=== PATIENT | male | born 1975 | race Caucasian/White ===

== ENCOUNTER 2018-01-07 09:49 | Emergency (ER) | payer OTHER ==
[~2018-01-07] VITALS: Ht 188 cm; Wt 127.0 kg
[~2018-01-07 09:49] MED LIST: APAP500 PO; BACTRIM DS TAB1 EACH PO; HYDROCODONE-AP1 EAC6 PO; IBUPROFEN 800800 M1 PO
[2018-01-07] MEDS ORDERED: ACCUNEB SO1.25 MG/1 INH (09:59)
[2018-01-07 10:37] LABS: ABSOLUTE BASOPHILS 0.1 thou/uL (0.0-0.2); ABSOLUTE EOSINOPHILS 0.2 thou/uL (0.0-0.7); ABSOLUTE MONOCYTES 0.5 thou/uL (0.0-1.2); ABSOLUTE NEUTROPHILS 3.7 thou/uL (1.6-8.1); BASOPHILS 1.1 %; EOSINOPHILS 3.2 %; HEMATOCRIT 45.3 % (42.0-52.0); HEMOGLOBIN 15.2 gm/dL (14.0-18.0); LYMPHOCYTES 30.4 %; MCHC 33.5 g/dL (28.0-37.0); MCV 89.6 fL (80.0-100.0); MONOCYTES 8.1 %; MPV 7.7 fl. (7.2-11.1); NUCLEATED RBCS 0 /100WBC; PLATELET COUNT* 266 thou/uL (150-400); POLYS 57.2 %; RBC 5.05 mil/uL (4.50-6.00); RDW-CV 12.4 % (10.5-14.5); WBC 6.5 thou/uL (4.0-11.0)
[2018-01-07 10:47] LABS: CALCIUM 9.1 mg/dL (8.5-10.1); CREATININE 0.8 mg/dL (0.6-1.3); POTASSIUM 4.9 mmol/L (3.5-5.1)
[2018-01-07 10:57] LABS: ALBUMIN 3.6 g/dL (3.4-5.0); TOTAL BILIRUBIN 0.6 mg/dL (<0.1-1.0); TOTAL PROTEIN 7.8 g/dL (6.4-8.2)
[2018-01-07 11:06] LABS: INFLUENZA A ANTIGEN None Detected (None Detect); INFLUENZA B ANTIGEN None Detected (None Detect)
[2018-01-07] MEDS ORDERED: AZITHROMYCIN 2250 MG PO (11:23)
[2018-01-07] MEDS ORDERED: PREDNISONE50 MG PO (11:23)
[2018-01-07 11:29] VITALS: BP 150/98
== END 2018-01-07 11:30 | disposition home or self-care (01) ==
LOC: M.ERS 09:49
PROVIDERS: Personal Emergency Response Attendant
DX: J40 Bronchitis, not specified as acute or chronic (principal); I10 Essential (primary) hypertension; J45.909 Unspecified asthma, uncomplicated

== ENCOUNTER 2018-12-21 08:13 | Emergency (ER) | payer OTHER ==
[~2018-12-21] VITALS: Ht 188 cm; Wt 113.4 kg
[~2018-12-21 08:13] MED LIST changes: +ACCUNEB SO1.25 MG/1 INH; +AZITHROMYCIN 2250 MG PO; +PREDNISONE50 MG PO
[2018-12-21 08:50] LABS: ABSOLUTE BASOPHILS 0.1 thou/uL (0.0-0.2); ABSOLUTE EOSINOPHILS 0.2 thou/uL (0.0-0.7); ABSOLUTE LYMPHOCYTES 2.7 thou/uL (0.8-5.3); ABSOLUTE MONOCYTES 0.9 thou/uL (0.0-1.2); ABSOLUTE NEUTROPHILS 5.1 thou/uL (1.6-8.1); EOSINOPHILS 1.9 %; HEMATOCRIT 45.5 % (42.0-52.0); HEMOGLOBIN 15.4 gm/dL (14.0-18.0); LYMPHOCYTES 30.4 %; MCH 30.2 pg (26.0-34.0); MCV 88.8 fL (80.0-100.0); MONOCYTES 9.9 %; MPV 8.2 fl. (7.2-11.1); NUCLEATED RBCS 0 /100WBC; PLATELET COUNT* 279 thou/uL (150-400); POLYS 56.8 %; RBC 5.12 mil/uL (4.50-6.00); RDW-CV 12.8 % (10.5-14.5)
[2018-12-21 08:51] LABS: ANION GAP 6 mmol/L (7-16); BUN 14 mg/dL (7-18); CHLORIDE 100 mmol/L (98-107); CO2 29 mmol/L (21-32); CREATININE 1.4 mg/dL (0.6-1.3); GLUCOSE 105 mg/dL (70-99); POTASSIUM 4.1 mmol/L (3.5-5.1); SODIUM 135 mmol/L (136-145); TROPONIN-I LEVEL <0.06 ng/mL (<0.06)
[2018-12-21 08:59] LABS: ALBUMIN 3.6 g/dL (3.4-5.0); ALKALINE PHOSPHATASE 64 U/L (46-116); LIPASE 116 U/L (73-393); MAGNESIUM 1.9 mg/dL (1.8-2.4); NT-PRO BRAIN NAT PEPTIDE 14 pg/mL (<300); SGOT 22 U/L (15-37); SGPT 38 U/L (30-65); TOTAL BILIRUBIN 1.1 mg/dL (<0.1-1.0)
[2018-12-21] MEDS ORDERED: HYDROCODONE-AP1 EAC6 PO (10:50)
[2018-12-21 11:01] VITALS: BP 130/85
--- NOTE | 2018-12-23 14:56 | EKG ---
[place] [address] ELECTROCARDIOGRAM REPORT Name: ALESSANDRA BARNES Room: 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 : 1975 Requested By: Shane Chavez Order Number: [id number] MD: Shilo Reyes Measurements Intervals [place] Rate: 87 P: 24 NH: 177 QRS: -16 QRSD: 109 T: 46 QT: 367 QTc: 442 Interpretive Statements Sinus rhythm RSR' in V1 or V2, probably normal variant Left ventricular hypertrophy, by voltage Baseline wander in lead(s) V3,V4,V5 No previous ECG available for comparison Electronically Signed On 12-23-2018 14:56:14 CDT by Shilo Reyes [email or web address] <ELECTRONICALLY SIGNED> By: Shilo Reyes MD, [facility] 12/23/18 1456 7 7 Shilo Reyes MD, [facility] /EPI
--- NOTE | 2018-12-23 14:58 | EKG ---
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1975 Requested By: Shane Chavez Order Number: [id number] MD: Shilo Reyes Measurements Intervals [place] Rate: 73 P: 25 [place]: 178 QRS: 8 QRSD: 112 T: 64 QT: 389 QTc: 429 Interpretive Statements Sinus rhythm Incomplete right bundle branch block ST elev, probable normal early repol pattern No previous ECG available for comparison Electronically Signed On 12-23-2018 14:58:18 CDT by Shilo Reyes [email or web address] <ELECTRONICALLY SIGNED> By: Shilo Reyes MD, [facility] 12/23/18 1458 1021 1021 Shilo Reyes MD, [facility] /EPI
== END 2018-12-21 11:03 | disposition home or self-care (01) ==
LOC: M.ERS 08:13
PROVIDERS: Emergency Medicine Emergency Medical Services
DX: M94.0 Chondrocostal junction syndrome [Tietze] (principal); I10 Essential (primary) hypertension; J45.909 Unspecified asthma, uncomplicated; Z88.0 Allergy status to penicillin; F17.200 Nicotine dependence, unspecified, uncomplicated